=== PATIENT | male | born 1985 | race Two or more races ===

== ENCOUNTER 2017-01-17 19:30 | Emergency (ER) | payer OTHER ==
[~2017-01-17] VITALS: Ht 167.6 cm; Wt 62.2 kg
[2017-01-17 20:17] VITALS: BP 118/58
[2017-01-17] MEDS ORDERED: AMOX1TAB61 PO (20:23)
--- NOTE | 2017-01-17 20:23 | PHYS DOC ---
Adult General Chief Complaint Chief Complaint: COUGH HPI HPI Patient is a 31 year old male presents emergency department stating that he's had a cough congestion with sinus pressure for the last week. He states that he' s been having itchy watery eyes. He denies taking anything for the pressure and discomfort. Patient denies any fever as well. Patient states the cough is been productive that is, white in color. He denies any further symptoms. Review of Systems Review of Systems Constitutional: Denies fever or chills [] Eyes: Denies change in visual acuity, redness, or eye pain [] HENT: nasal congestion denies sore throat [] Respiratory: cough denies shortness of breath [] Cardiovascular: No additional information not addressed in HPI [] GI: Denies abdominal pain, nausea, vomiting, bloody stools or diarrhea [] : Denies dysuria or hematuria [] Musculoskeletal: Denies back pain or joint pain [] Integument: Denies rash or skin lesions [] Neurologic: Denies headache, focal weakness or sensory changes [] Physical Exam Physical Exam Constitutional: Well developed, well nourished, no acute distress, non-toxic appearance. [] HENT: Normocephalic, atraumatic, bilateral external ears normal, oropharynx moist, no oral exudates, nose normal. Bilateral tympanic membranes appear to be normal. Throat with postnasal drip and redness noted with no erythematous. No anterior cervical adenopathy noted. Patient was noted to have bilateral frontal and maxillary sinus tenderness. Eyes: PERRLA, EOMI, conjunctiva normal, no discharge. Patient appears to have blood shot eyes that appear to be irritated no drainage noted Neck: Normal range of motion, no tenderness, supple, no stridor. [] Cardiovascular:Heart rate regular rhythm, no murmur [] Lungs & Thorax: Bilateral breath sounds clear to auscultation [] Skin: Warm, dry, no erythema, no rash. [] Back: No tenderness, Extremities: No tenderness, no cyanosis, no clubbing, ROM intact, no edema. [] Neurologic: Alert and oriented X 3, normal motor function, normal sensory function, no focal deficits noted. [] Psychologic: Affect normal, judgement normal, mood normal. [] EKG EKG [] Radiology/Procedures Radiology/Procedures [] Course & Med Decision Making Course & Med Decision Making Pertinent Labs and Imaging studies reviewed. (See chart for details) Patient recommended take Zyrtec at home. He'll be provided with Augmentin for a sinus infection. He'll also be encouraged to take Mucinex DM to help with the pressure and discomfort. Patient will be discharged home in stable condition signs and symptoms to return back to emergency department been provided. Also recommended Tylenol and ibuprofen for fever chills and generalized body aches and discomfort. Drink plenty of fluids such as water, Gatorade or propel. Follow -up with your primary care physician in the next 3-5 days. Patient agrees with discharge instructions treatment regimens and follow-up recommendations. Dragon Disclaimer Dragon Disclaimer This electronic medical record was generated, in whole or in part, using a voice recognition dictation system. Departure Departure Impression: Primary Impression: Sinusitis Disposition: 01 HOME, SELF-CARE Condition: STABLE Patient Instructions: Sinusitis, [id number] Additional Instructions: Activity as tolerated. Zyrtec 10 mg as prescribed drop forger [id number] nightly. Antibiotics as prescribed. Drink plenty of fluids. You may also take Mucinex DM [id number] to help with cough and congestion. Follow-up to primary care physician in the next 3-5 days. Scripts Amoxicillin/Potassium Clav (Augmentin 875-125 Tablet)1 Each Tablet1 Tab PO BID # 20 TAB Prov:BRUNO GARCIA APRN 01/17/17 BRUNO GARCIA APRN Jan 17, 2017 20:23
== END 2017-01-17 20:36 | disposition home or self-care (01) ==
LOC: ER 19:30
DX: J32.9 Chronic sinusitis, unspecified (principal)
CPT/HCPCS: 99283

== ENCOUNTER 2021-05-31 00:42 | Emergency (ER) | payer BC, OTHER ==
[~2021-05-31] VITALS: Ht 152.4 cm; Wt 72.7 kg
[~2021-05-31 00:42] MED LIST: AMOX1TAB61 PO
[2021-05-31 02:19] VITALS: BP 117/78
--- NOTE | 2021-05-31 02:27 | PHYS DOC ---
Past Medical History Past Medical History: Hypothyroid Past Surgical History: No Surgical History Smoking Status: Never Smoker Alcohol Use: None Drug Use: None General Adult EDM: Chief Complaint: BACK PAIN - NO INJURY HPI: HPI: 35-year-old male presents to the emergency department planing of right upper back pain without an injury associated with the pain. He reports chronic pain in his back area that now radiates up towards his neck. He reports tight muscles on both sides of his back but more freely on the right side today. He is able to walk, move his arm normally, reports limited range of motion of his neck secondary to the pain. The patient denies nausea, vomiting, fever, chills, chest pain, shortness of breath, abdominal pain, urinary symptoms, cough, recent trauma, or any other complaints. He takes flexeril at home for chronic back pain. Review of Systems: Review of Systems: ROS is otherwise negative except for what was mentioned in HPI Heart Score: C/O Chest Pain: No Allergies: Allergies: Allergies Coded Allergies Type Severity Reaction Last Updated Verified No Known Drug Allergies 01/17/17 No Physical Exam: PE: Constitutional: No acute distress, non-toxic appearance. HENT: Atraumatic, bilateral external ears normal, nose normal. Neck: Normal range of motion, supple, no stridor. Cardiovascular: Heart rate regular rhythm. 2+ radial pulses Lungs & Thorax: No respiratory distress, symmetrical expansion. Back: No CT or L spinal tenderness, paravertebral muscles appear tight to palpation Skin: Warm, dry. Extremities: No tenderness, no cyanosis, ROM intact, no edema. Neurologic: Alert and oriented X 3, normal motor function, normal sensory function, no focal deficits noted. Non ataxic gait. GCS 15. Psychologic: Affect normal, judgment normal, mood normal. Current Patient Data: Vital Signs: Vital Signs Date Time Temp Pulse Resp B/P (MAP) Pulse Ox O2 Delivery O2 Flow Rate FiO2 05/31/21 02:19 98.0 75 18 117/78 (91) 98 Room Air 98.0 Course & Med Decision Making: Course & Med Decision Making Patient with benign exam, neurologically intact, likely muscle spasm, given Valium Toradol and Lidoderm patch in the emergency department today, he is not driving. He is comfortable with this plan. He has a primary care doctor to follow-up with and I urged him to do so Departure Departure Impression: Primary Impression: Back pain Disposition: HOME / SELF CARE / HOMELESS Referrals: NO PCP (PCP) Patient Instructions: Back Pain, Adult, [id number] Additional Instructions: You were seen in the emergency department for back pain. Your pain could be musculoskeletal in nature and could be from a pulled or strained muscle. The pain should improve with NSAID medications (ibuprofen, Aleve, etc.), stretching, and light activity. You may also use Tylenol for your back pain (no more than 3000 mg per day). Take as directed by instructions. Do not take NSAID medications if you have kidney disease. Do not take Tylenol if you have liver disease. If it does not improve, you should follow up with a primary care doctor. - Use stretching and strengthening exercises at least twice per day, continue to complete physical activity such as walking, and alternate ice and heat (ie heating pad) to the area of pain. - Return to the Emergency Department should your symptoms worsen, or should you develop a fever, change in bowel or bladder habits, weakness or numbness in your lower extremities, inability to walk, or any concern you feel warrants further evaluation. - Take Aleve or Ibuprofen, and Tylenol as needed for your pain. - You may use over the counter lidocaine patches as needed for pain. - Avoid taking narcotic medications for back pain. - Follow up with your doctor within 1-2 weeks if your symptoms are not improving. ROBERT MONDRAGON DO May 31, 2021 02:27
[2021-05-31] MEDS ORDERED: LIDOCAINE (700MG/PATCH) PATCH. TD ONE (03:00)
[2021-05-31] MEDS ORDERED: diazePAM 5 MG TABLET PO ONE (03:00)
[2021-05-31] MEDS ORDERED: KETOROLAC 15 MG/ML VIAL. IM ONE (03:00)
== END 2021-05-31 03:06 | disposition home or self-care (01) ==
LOC: ER 00:42
DX: M54.6 Pain in thoracic spine (principal); G89.29 Other chronic pain; E03.9 Hypothyroidism, unspecified
CPT/HCPCS: 96372; 99283; J1885